=== PATIENT | female | born 1975 | race Caucasian/White ===

== ENCOUNTER 2020-01-12 17:29 | Emergency (ER) | payer OTHER, SELFPAY ==
[2020-01-12 17:31] VITALS: BP 130/71; PULSE 76; RESP 18; TEMP 37; O2SAT 100
[2020-01-12] MEDS: IBUPROFEN 600 MG TABLET PO (19:09)
[2020-01-12] MEDS: LIDOCAINE HCL 1% LOCAL INJ 20 ML VIAL (19:10)
[2020-01-12] MEDS: cefTRIAXone 1 GM VIAL IM (19:10)
--- NOTE | 2020-01-12 19:13 | ED.EAR ---
HPI - Ear Problem General Chief complaint: Ear <SAURABH Welch Last Filed: 01/12/20 19:19> Stated complaint: Can't hear <SAURABH Welch Last Filed: 01/12/20 19:19> Time Seen by Provider: 01/12/20 17:32 <SAURABH Welch Last Filed: 01/12/20 19:19> Source: patient <SAURABH Welch Last Filed: 01/12/20 19:19> Mode of arrival: ambulatory <SAURABH Welch Last Filed: 01/12/20 19:19> Limitations: no limitations <SAURABH Welch Last Filed: 01/12/20 19:19> History of Present Illness HPI Narrative: Patient is a 44-year-old female who presents to emergency department for evaluation of bilateral ear discomfort with congestion patient presents with drainage from the ears and has had ear infections historically patient has tried [id number] medications with minimal improvement patient denies fever vomiting or other complaints and is otherwise resting in the room at this time in no distress <SAURABH Welch Last Filed: 01/12/20 19:19> Related Data Home medications: Home Medications Medication Instructions Recorded Confirmed esomeprazole magnesium [Nexium 20 mg PO DAILY 01/12/20 24HR] estradiol 0.5 mg PO TID 01/12/20 01/12/20 furosemide [Lasix] 80 mg PO DAILY 01/12/20 levothyroxine [Levoxyl] 100 mcg PO DAILY 01/12/20 meloxicam 7.5 mg PO DAILY 01/12/20 <SAURABH Welch Last Filed: 01/12/20 19:19> Allergies/adverse reactions: Allergies Allergy/AdvReac Type Severity Reaction Status Date / Time pomegranate Allergy Hives Verified 01/12/20 17:40 Bleach (Sodium Hypochlorite) AdvReac Rash Verified 01/12/20 17:40 <SAURABH Welch Last Filed: 01/12/20 19:19> Review of Systems Review of Systems: All systems reviewed & are unremarkable except as noted in HPI and below <SAURABH Welch Last Filed: 01/12/20 19:19> PMFSH Past Medical History Medical History: Medical History (Updated 01/13/20 @ 00:00 by Justin Prabhakar) Obesity <Jerzy Quiroz PA-C - Last Filed: 01/12/20 19:19> Surgical History Surgical History: Surgical History (Updated 01/12/20 @ 19:15 by Jerzy Quiroz PA-C) History of tympanostomy tube placement <Jerzy Quiroz PA-C - Last Filed: 01/12/20 19:19> Social History Social History: Social History (Updated 01/12/20 @ 19:15 by Jerzy Quiroz PA-C) Smoking status: Never smoker <Jerzy Quiroz PA-C - Last Filed: 01/12/20 19:19> Exam Narrative: Exam Narrative: GENERAL: Well-appearing, well-nourished, and in no acute distress. HEAD: Normocephalic, atraumatic. EYES: PERRLA and EOMI. ENT: Nares clear, no rhinorrhea or epistaxis. Mucous membranes moist. Oropharynx without tonsillar hypertrophy exudate or other lesions. Bilateral external canals are edematous with clear discharge no cellulitic changes around the ear consistent with otitis externa bilaterally unable to visualize the TMs NECK: Supple. No adenopathy or masses. CHEST: Clear to auscultation. No respiratory distress. No wheezes rales or rhonchi HEART: Regular rate and rhythm. No murmur heard. EXTREMITIES: Normal range of motion. No edema. SKIN: Warm, dry, no rash. NEURO: No focal deficits. Alert and oriented x3. PSYCH: Normal mood and affect. <Jerzy Quiroz PA-C - Last Filed: 01/12/20 19:19> Course Course Emergency Course: Patient in the room in no distress aware of case findings treatment plan and diagnosis <Jerzy Quiroz PA-C - Last Filed: 01/12/20 19:19> TAKE OUT WAITER/WAITRESS/PA Physician Supervision Pt with ear wick placed, not ear wax for otitis externa. For this patient encounter, I reviewed the TAKE OUT WAITER/WAITRESS or PA documentation, treatment plan, and medical decision making; and I had [id number] time with this patient. <Rose Marie Patel MD - Last Filed: 01/14/20 07:35> Vital Signs Vital signs: Vital Signs Temperature 37.0 C 01/12/20 1
[2020-01-12] MEDS: CIPROFLOXACIN HC OTIC 10 ML 3 DROP EACH EAR (19:24)
== END 2020-01-12 19:40 | disposition home or self-care (01) ==
PROVIDERS: Emergency Provider Emergency Medicine
DX: H60.93 Unspecified otitis externa, bilateral (principal); E66.9 Obesity, unspecified; Z68.32 Body mass index [BMI] 32.0-32.9, adult
CPT/HCPCS: 96372; 99283; A9270; J0696

== ENCOUNTER 2022-04-22 18:42 | Emergency (ER) | payer SELFPAY ==
[2022-04-22 18:58] VITALS: BP 113/89; PULSE 79; RESP 16; TEMP 37; O2SAT 100
--- NOTE | 2022-04-22 19:05 | ED.WOUNDLAC ---
HPI - Wound/Laceration General Chief Complaint: Wound/Laceration Stated Complaint: Laceration Left Wrist Time Seen by Provider: 04/22/22 19:05 History of Present Illness HPI narrative: Mr. Vazquez is a 46-year-old female with ulcerative colitis, hypothyroid, anxiety, GERD, depression, who was cutting a box at work 1:00 this afternoon a kick boxer slipped and cut her in the left lower for arm. Controlled bleeding, small laceration. Tetanus vaccination Related Data Home Medications Medication Instructions Recorded Confirmed estradiol 0.5 mg tablet mg 04/22/22 levothyroxine 175 mcg tablet mcg 04/22/22 lorazepam 1 mg tablet mg 04/22/22 omeprazole 40 mg capsule,delayed mg 04/22/22 release vedolizumab 300 mg intravenous 300 mg IV ONCE 04/22/22 04/22/22 solution (Entyvio) vilazodone 40 mg tablet (Viibryd) mg 04/22/22 Allergies Allergy/AdvReac Type Severity Reaction Status Date / Time pomegranate Allergy Hives Verified 01/12/20 17:40 Bleach (Sodium Hypochlorite) AdvReac Rash Verified 01/12/20 17:40 Review of Systems Review of Systems: CONSTITUTIONAL: Denies fever, chills, sweats. EYES: Denies visual changes, redness, discharge. ENT: Denies rhinorrhea, congestion, sore throat, otalgia. CARDIOVASCULAR: Denies chest pain, palpitations, edema. RESPIRATORY: Denies dyspnea, wheezing, cough GASTROINTESTINAL: Denies abdominal pain, nausea, vomiting, diarrhea. GENITOURINARY: Denies dysuria, hematuria, abnormal discharge SKIN: Denies rash or itching. 1 cm laceration to left forearm NEUROLOGIC: Denies numbness, or focal weakness. PSYCHIATRIC: Denies anxiety or depression. [facility] Past Medical History Medical History Obesity Surgical History Surgical History History of tympanostomy tube placement Social History Social History Smoking status: Never smoker Comments At time of signature, I agree with nursing past medical, surgical, social and family history. There is no relevant family history pertinent to the presenting complaint. Exam Narrative: GENERAL: This is a well-nourished, well-developed patient, in mild distress. HEAD: normocephalic, atraumatic. EYES: PERRL. Sclera clear/white. Vision is grossly intact. EARS: External ears normal, . Hearing grossly intact. NOSE: External nose normal without nasal discharge, nares without redness, no rhinorrhea. THROAT: Mucous membranes moist, NECK: Neck supple, non-tender CARDIOVASCULAR: Regular rate and rhythm without murmurs, gallops, or rubs. RESPIRATORY: Clear to auscultation. Breath sounds equal bilaterally. No wheezes, rales, or rhonchi. GASTROINTESTINAL: Abdomen soft, non-tender, SKIN: warm, intact with no suspicious lesions or rash, good texture and turgor. 1 cm laceration to left forearm NEURO: awake, alert, and oriented to person, place and time. There were no obvious focal neurologic abnormalities. Steady gait EXTREMITIES: Normal range of motion. BACK: Nontender without deformity Course Course Emergency Course: Repair of 1 cm lack after cleaning with technic care included glue and Steri-Strips that was then covered with Coban to secure area. Care directions given to patient Given Level of Care: Express Care Visit Vital Signs Vital signs: Vital Signs Temperature 98.6 F 04/22/22 18:58 Pulse Rate 79 04/22/22 18:58 Respiratory Rate 16 04/22/22 18:58 Blood Pressure 113/89 04/22/22 18:58 Pulse Oximetry 100 04/22/22 18:58 Oxygen Delivery Room Air 04/22/22 18:58 Temperature 98.6 F 04/22/22 18:58 Pulse Rate 79 04/22/22 18:58 Respiratory Rate 16 04/22/22 18:58 Blood Pressure 113/89 04/22/22 18:58 Pulse Oximetry 100 04/22/22 18:58 Oxygen Delivery Room Air 04/22/22 18:58 MDM - Wound/Laceration Differential Diagnosis Differential diagn
[2022-04-22] MEDS: TETANUS,DIPHTHERIA,AC PERTUSSIS ADULT (0.5 ML) BOOSTRIX IM (19:20)
== END 2022-04-22 19:33 | disposition home or self-care (01) ==
PROVIDERS: Emergency Provider Nurse Practitioner
DX: S51.812A Laceration without foreign body of left forearm, initial encounter (principal); W26.8XXA Contact with other sharp object(s), not elsewhere classified, initial encounter; Z23 Encounter for immunization; E66.9 Obesity, unspecified; Z68.36 Body mass index [BMI] 36.0-36.9, adult; E03.9 Hypothyroidism, unspecified; K21.9 Gastro-esophageal reflux disease without esophagitis
CPT/HCPCS: 90471; 90715; 99212; G0463